=== PATIENT | female | born 1945 | race Caucasian/White ===

== ENCOUNTER 2019-10-29 14:59 | Emergency (ER) | payer BC ==
[2019-10-29] MEDS ORDERED: KETOROLAC 60 MG/2 ML VIAL IM ONE (17:00)
[2019-10-31 20:35] LABS: ANION GAP 14.8 (8-16); CARBON DIOXIDE 24.2 mmol/L (21-32); CHLORIDE 108 mmol/L (98-107); CREATININE 0.8 mg/dL (0.6-1.3); GLUCOSE 119 mg/dL (74-106); SODIUM SERUM 143 mmol/L (136-145); UREA NITROGEN, BLOOD 21 mg/dL (7-18)
[2019-10-31 20:36] LABS: ALBUMIN 3.2 g/dL (3.4-5.0); ASPARTATE AMINOTRANSFERASE 17 U/L (15-37); TOTAL BILIRUBIN 0.7 mg/dL (0.0-1.0)
[2019-10-31 21:41] LABS: HEMATOCRIT 40.7 % (36-48); HEMOGLOBIN 13.3 g/dL (12.0-16.0); MEAN CORPUSCULAR VOLUME 84.7 fL (80-94); RED BLOOD CELL COUNT(AUTO) 4.81 MIL/uL (4.20-5.40); WHITE BLOOD COUNT (AUTO) 6.3 K/uL (4.8-10.8)
[2019-10-31 21:42] LABS: LYMPHOCYTES # (AUTO) 1.9 K/uL (2.5-16.5); LYMPHOCYTES % (AUTO) 30.5 % (20.5-51.1); MEAN CORPUSCULAR HEMOGLOBIN 28 pg (27-31); MEAN CORPUSCULAR HGB CONC 33 g/dL (33-37); MONOCYTES # (AUTO) 0.5 K/uL (0.8-1.0); MONOCYTES % (AUTO) 7.4 % (1.7-9.3); NEUTROPHILS # (AUTO) 3.7 K/uL (1.8-7.7); NEUTROPHILS % (AUTO) 58.1 % (42.2-75.2); PLATELET COUNT (AUTO) 244 K/uL (140-450); RED CELL DISTRIBUTION WIDTH 13.8 % (11.6-13.7)
[2019-10-31 21:43] LABS: BASOPHILS # (AUTO) 0.1 K/uL (0.00-0.22); EOSINOPHILS # (AUTO) 0.2 K/uL (0-0.4)
== END 2019-10-29 19:27 | disposition home or self-care (01) ==
LOC: MED 14:59
DX: S20.219A Contusion of unspecified front wall of thorax, initial encounter (principal); Z96.651 Presence of right artificial knee joint; V49.9XXA Car occupant (driver) (passenger) injured in unspecified traffic accident, initial encounter; Y93.89 Activity, other specified; Y92.410 Unspecified street and highway as the place of occurrence of the external cause; Y99.8 Other external cause status
CPT/HCPCS: 36415; 71045; 71250; 80053; 83880; 84484; 85025; 99284; J1885; Q0092

== ENCOUNTER 2019-11-07 06:58 | Emergency (ER) | payer BC ==
[~2019-11-07] VITALS: Ht 154.9 cm; Wt 93.0 kg
[2019-11-07 07:04] VITALS: BP 110/92
[2019-11-07] MEDS: ASPIRIN 81 MG TAB.CHEW PO ONE (07:19)
[2019-11-07] MEDS: NACL 0.9% 1,000 ML IV ONE (07:47)
[2019-11-07] MEDS: MORPHINE SULFATE 2 MG/ML SYR IVP ONE ×2 (07:47→08:36)
[2019-11-07 07:52] LABS: BASOPHILS # (AUTO) 0.1 K/uL (0.00-0.22); BASOPHILS % (AUTO) 0.8 % (0.0-2.0); EOSINOPHILS # (AUTO) 0.3 K/uL (0-0.4); EOSINOPHILS % (AUTO) 4.5 % (0.0-4.0); HEMATOCRIT 39.2 % (36-48); LYMPHOCYTES # (AUTO) 1.6 K/uL (2.5-16.5); LYMPHOCYTES % (AUTO) 23.8 % (20.5-51.1); MEAN CORPUSCULAR HEMOGLOBIN 28 pg (27-31); MEAN CORPUSCULAR HGB CONC 33 g/dL (33-37); MEAN CORPUSCULAR VOLUME 85.4 fL (80-94); MONOCYTES # (AUTO) 0.5 K/uL (0.8-1.0); MONOCYTES % (AUTO) 7.8 % (1.7-9.3); NEUTROPHILS # (AUTO) 4.3 K/uL (1.8-7.7); NEUTROPHILS % (AUTO) 63.1 % (42.2-75.2); PLATELET COUNT (AUTO) 233 K/uL (140-450); RED BLOOD CELL COUNT(AUTO) 4.59 MIL/uL (4.20-5.40); WHITE BLOOD COUNT (AUTO) 6.8 K/uL (4.8-10.8)
[2019-11-07 08:05] LABS: PROTHROMBIN TIME 9.6 secs (10.8-13.4)
[2019-11-07 08:09] LABS: ANION GAP 11.9 (8-16); CARBON DIOXIDE 28.1 mmol/L (21-32); CHLORIDE 107 mmol/L (98-107); CREATININE 0.8 mg/dL (0.6-1.3); GLUCOSE 116 mg/dL (74-106); SODIUM SERUM 143 mmol/L (136-145); UREA NITROGEN, BLOOD 21 mg/dL (7-18)
[2019-11-07 08:15] LABS: ALBUMIN 3.7 g/dL (3.4-5.0); ASPARTATE AMINOTRANSFERASE 12 U/L (15-37); TOTAL BILIRUBIN 0.6 mg/dL (0.0-1.0)
[2019-11-07 11:36] VITALS: BP 132/71
== END 2019-11-07 11:37 | disposition home or self-care (01) ==
LOC: MED 06:58
DX: R07.89 Other chest pain (principal)
CPT/HCPCS: 36415; 36600; 71250; 80053; 82803; 84484; 85025; 85379; 85610; 85730; 96374; 96376; 99284; J2270

== ENCOUNTER 2022-11-04 16:30 | Emergency (ER) | payer BC ==
[~2022-11-04] VITALS: Ht 142.2 cm; Wt 83.9 kg
[2022-11-04 16:56] VITALS: BP 170/112
--- NOTE | 2022-11-04 17:08 | NUR ---
lwbs at this time, pt states it is getting too dark for her outside and she cant see when she drives
[2022-11-05] MEDS ORDERED: LID5T TP (17:15)
[2022-11-05] MEDS ORDERED: CYCL-711 PO (17:15)
== END 2022-11-04 17:08 | disposition left against medical advice (07) ==
LOC: MED 16:30
DX: M25.552 Pain in left hip (principal); Z53.21 Procedure and treatment not carried out due to patient leaving prior to being seen by health care provider

== ENCOUNTER 2022-11-05 14:46 | Emergency (ER) | payer BC ==
[~2022-11-05] VITALS: Ht 141.7 cm; Wt 83.1 kg
[2022-11-05 15:02] VITALS: BP 140/59
--- NOTE | 2022-11-05 15:07 | NUR ---
Danielle thorne in [facility] - 11/05/22 at 1509 by [email or web address]URT
--- NOTE | 2022-11-05 15:09 | NUR ---
PT AMB TO BED 11
[2022-11-05] MEDS ORDERED: LIDOCAINE 5% 1 EA PATCH TP STA (15:16)
[2022-11-05] MEDS ORDERED: ACETAMINOPHEN EXTRA STRENGTH 500 MG TAB PO ONE (15:20)
--- NOTE | 2022-11-05 15:42 | NUR ---
PT CO LEFT HIP PAIN S/P FALL X1 WEEK. DENIES LOC
--- NOTE | 2022-11-05 15:58 | NUR ---
pt taken for imaging via [employer] at this time
[2022-11-05] MEDS ORDERED: CYCL-711 PO (17:15)
[2022-11-05] MEDS ORDERED: LID5T TP (17:15)
--- NOTE | 2022-11-05 17:21 | NUR ---
Patient discharged with v/s stable. Written and verbal after care instructions given and explained. Patient alert, oriented and verbalized understanding of instructions. Ambulatory with steady gait. All questions addressed prior to discharge. ID band removed. Patient advised to follow up with PMD. Rx of FLEXERIL, LIDODERM PATCH given. Patient educated on indication of medication including possible reaction and side effects. Opportunity to ask questions provided and answered.
== END 2022-11-05 17:21 | disposition home or self-care (01) ==
LOC: MED 14:46
DX: S76.012A Strain of muscle, fascia and tendon of left hip, initial encounter (principal); W01.0XXA Fall on same level from slipping, tripping and stumbling without subsequent striking against object, initial encounter; Y93.89 Activity, other specified; Y92.89 Other specified places as the place of occurrence of the external cause; Y99.8 Other external cause status
CPT/HCPCS: 73502; 99283